=== PATIENT | female | born 1985 | race Caucasian/White ===

== ENCOUNTER 2022-02-09 12:21 | Emergency (ER) | payer OTHER, SELFPAY ==
[2022-02-09 12:29] VITALS: BP 106/56; PULSE 67; RESP 20; TEMP 37.1; O2SAT 100
--- NOTE | 2022-02-09 13:00 | ED.SKABFB ---
HPI - Skin/Abscess/Foreign Bdy General Chief complaint: Skin/Abscess/Foreign Body Stated complaint: Rash Time Seen by Provider: 02/09/22 12:35 Source: patient, RN notes reviewed and old records reviewed Mode of arrival: ambulatory Limitations: no limitations History of Present Illness HPI narrative: 37 year old female who presents to [facility] with complaints of 2 week duration of rash on her left eyebrow and on her nasal area. Patient states 3-year-old child was diagnosed recently impetigo and had to have oral antibiotic to get it to clear up. Patient has some crusty drainage noted to rash on eyebrow and she states that area is itchy., She has been using Mupirocin ointment to area without improvement. MD complaint: rash Onset (ago): week(s) (2) Treatments prior to arrival: other (Mupirocin) Related Data Home Medications Medication Instructions Recorded Confirmed estradiol-norethindrone acet 0.5 1 tablet PO DAILY 02/09/22 02/09/22 mg-0.1 mg tablet Allergies Allergy/AdvReac Type Severity Reaction Status Date / Time No Known Allergies Allergy Verified 02/09/22 12:59 Review of Systems Review of Systems: CONSTITUTIONAL: Denies fever, chills, or sweats. CARDIOVASCULAR: Denies chest pain, palpitations, or edema. RESPIRATORY: Denies cough or dyspnea. SKIN: Reports crusty rash to her left eye brow and also to her nasal area MUSCULOSKELETAL: Denies joint pain or myalgia. NEUROLOGIC: Denies headache, numbness, or weakness. All systems reviewed & are unremarkable except as noted in HPI and below PMFSH Social History Social History (Updated 02/09/22 @ 13:16 by Precious Higginbotham NP) Living arrangements: with family Gender identity (if verbalized by the patient): Female Comments At time of signature, agree with nursing past medical, surgical, social and family history. There is no relevant family history pertinent to the presenting complaint Exam Narrative: GENERAL: Well-appearing, well-nourished, and in no acute distress. HEAD: Normocephalic, atraumatic. EYES: PERRLA, conjunctivae clear, and EOMI. ENT: Mucous membranes moist. Oropharynx without edema, erythema or lesions. NECK: Supple. No lymphadenopathy CHEST: Clear to auscultation. No respiratory distress.SAO2 100% on room air HEART: Regular rate and rhythm. SKIN: Warm, dry.? Patches of red crusty lesions to nasal area and to left eyebrow with yellowish drainage, is itchy NEURO:? Alert and oriented x3. PSYCH: Normal mood and affect Course Course Emergency Course: Patient is aware of diagnosis, understands and agrees to treatment plan.? Anticipatory guidance given.? Patient agrees to follow-up as directed and is aware of reasons to seek care at the emergency department. Portions of this record may have been created with voice recognition software Level of Care: Express Care Visit Vital Signs Vital signs: Vital Signs Temperature 37.1 C 02/09/22 12:29 Pulse Rate 67 02/09/22 12:29 Respiratory Rate 20 02/09/22 12:29 Blood Pressure 106/56 L 02/09/22 12:29 Pulse Oximetry 100 02/09/22 12:29 Oxygen Delivery Room Air 02/09/22 12:29 Temperature 37.1 C 02/09/22 12:29 Pulse Rate 67 02/09/22 12:29 Respiratory Rate 20 02/09/22 12:29 Blood Pressure 106/56 L 02/09/22 12:29 Pulse Oximetry 100 02/09/22 12:29 Oxygen Delivery Room Air 02/09/22 12:29 Reviewed MDM - Skin/Abscess/Foreign Bdy MDM Narrative Medical decision making narrative: Does not appear at this time to be erythema multiforme, bullous, SJS, TEN; no evidence at this time to suggest RMSF, endocarditis or Lyme disease; patient looks well, nontoxic and is tolerating oral intake; no neurologic signs or symptoms; no headache, photophobia or neck pain; afebrile; appropriate for initial outpatient treatment; discussed the importance of follow-up, patient agrees; question, viral exanthema, contact dermatitis, allergic dermatitis, eczema, urticaria,
== END 2022-02-09 13:20 | disposition home or self-care (01) ==
PROVIDERS: Emergency Provider Registered Nurse; PCP Family Medicine
DX: L01.00 Impetigo, unspecified (principal)
CPT/HCPCS: 99213; G0463

== ENCOUNTER 2022-03-03 19:28 | Emergency (ER) | payer OTHER, SELFPAY ==
[2022-03-03 19:50] VITALS: BP 100/55; PULSE 76; RESP 16; TEMP 36.8; O2SAT 100
--- NOTE | 2022-03-03 20:29 | ED.SKABFB ---
HPI - Skin/Abscess/Foreign Bdy General Chief complaint: Skin/Abscess/Foreign Body Stated complaint: Rash on nose /eyebrow Time Seen by Provider: 03/03/22 20:30 Source: patient and RN notes reviewed Mode of arrival: ambulatory Limitations: no limitations History of Present Illness HPI narrative: 37-year-old female presents concern for impetigo on her nose. Reports she was treated with Keflex on February 09, the rash went away, however about a week ago started coming back. She reports in a slightly different spot this time. She reports the infection is in the left [place] and starting to appear on her forehead complaint: rash Related Data Home Medications Medication Instructions Recorded Confirmed estradiol-norethindrone acet 0.5 1 tablet PO DAILY 02/09/22 02/09/22 mg-0.1 mg tablet Allergies Allergy/AdvReac Type Severity Reaction Status Date / Time No Known Allergies Allergy Verified 02/09/22 12:59 Review of Systems Review of Systems: CONSTITUTIONAL: Denies malaise, chills, sweats, or fever. EYES: Denies redness, or discharge. ENT: Denies rhinorrhea, congestion, swollen lips, swollen tongue CARDIOVASCULAR: Denies chest pain, palpitations, or edema. RESPIRATORY: Denies cough or dyspnea. GASTROINTESTINAL: Denies abdominal pain, nausea, vomiting SKIN: Reports rash on the left nare MUSCULOSKELETAL: Denies joint pain or myalgia. NEUROLOGIC: Denies headache. All systems reviewed & are unremarkable except as noted in HPI and below PMFSH Social History Social History (Updated 02/09/22 @ 13:16 by Precious Higginbotham NP) Gender identity (if verbalized by the patient): Female Comments At time of signature, agree with nursing past medical, surgical, social and family history. There is no relevant family history pertinent to the presenting complaint Exam Narrative: GENERAL: Well-appearing, well-nourished, and in no acute distress. HEAD: Normocephalic, atraumatic. EYES: PERRLA, conjunctivae clear, and EOMI. ENT: Mucous membranes moist. Oropharynx without edema, erythema or lesions. NECK: Supple. No lymphadenopathy CHEST: Clear to auscultation. No respiratory distress. HEART: Regular rate and rhythm. SKIN: Warm, dry. Left nares is erythematous, slightly edematous with a honey-colored crusted rash, no surrounding erythema, edema, tenderness to the nose or mouth area. A pinpoint Honey-colored crusted area noted to the forehead. NEURO: Alert and oriented x3. PSYCH: Normal mood and affect Course Course Emergency Course: Patient is aware of diagnosis, understands and agrees to treatment plan. Anticipatory guidance given. Patient agrees to follow-up as directed and is aware of reasons to seek care at the emergency department. Portions of this record may have been created with voice recognition software Level of Care: Express Care Visit Vital Signs Vital signs: Vital Signs Temperature 98.2 F 03/03/22 19:50 Pulse Rate 76 03/03/22 19:50 Respiratory Rate 16 03/03/22 19:50 Blood Pressure 100/55 L 03/03/22 19:50 Pulse Oximetry 100 03/03/22 19:50 Oxygen Delivery Room Air 03/03/22 19:50 Temperature 98.2 F 03/03/22 19:50 Pulse Rate 76 03/03/22 19:50 Respiratory Rate 16 03/03/22 19:50 Blood Pressure 100/55 L 03/03/22 19:50 Pulse Oximetry 100 03/03/22 19:50 Oxygen Delivery Room Air 03/03/22 19:50 Reviewed. MDM - Skin/Abscess/Foreign Bdy MDM Narrative Medical decision making narrative: Does not appear at this time to be erythema multiforme, bullous, SJS, TEN; no evidence at this time to suggest RMSF, endocarditis or Lyme disease; patient looks well, nontoxic and is tolerating oral intake; no neurologic signs or symptoms; no headache, photophobia or neck pain; afebrile; appropriate for initial outpatient treatment; discussed the importance of follow-up, patient agrees; question, viral exanthema, contact dermatitis, allergic dermatitis, eczema, urticaria, impetigo, cellulitis
== END 2022-03-03 20:46 | disposition home or self-care (01) ==
PROVIDERS: Emergency Provider Nurse Practitioner
DX: L08.9 Local infection of the skin and subcutaneous tissue, unspecified (principal); B96.89 Other specified bacterial agents as the cause of diseases classified elsewhere
CPT/HCPCS: 87070; 87075; 87147; 87181; 87186; 87205; 99213; G0463

== ENCOUNTER 2022-03-19 17:01 | Emergency (ER) | payer OTHER, SELFPAY ==
--- NOTE | ~2022-03-19 | XR_ITS ---
EXAM: XR elbow LT min 3V DATE: 03/19/2022 19:25 HISTORY: FALL FORWARDS ON TO ALL FOURS, POSTERIOR PAIN . COMPARISON: None available. FINDINGS: Normal mineralization. Visualization of the posterior fat pad. Anterior displacement of th e anterior fat pad. No dislocation. No definite fracture visualized. No lytic or blastic lesion. Join t spaces are maintained. No erosion or periosteal change. Soft tissues within normal limits. IMPRESSION: Left elbow joint effusion which may indicate the presence of an occult radial head fractu re. Reviewed, dictated and finalized at location K. OR [facility] IMPRESSION: Left elbow joint effusion which may indicate the presence of an occ ult radial head fracture.
[2022-03-19 17:08] VITALS: BP 108/61; PULSE 93; RESP 16; TEMP 37.2; O2SAT 100
--- NOTE | 2022-03-19 19:34 | ED.UPPEXIN ---
HPI - Extremity Injury (Upper) General Chief Complaint: Extremity Injury, Upper Stated Complaint: left elbow/hand injury Time Seen by Provider: 03/19/22 19:34 Source: patient, RN notes reviewed and old records reviewed Mode of arrival: ambulatory Limitations: no limitations History of Present Illness HPI narrative: 37 year old female who resents to express care with complaints of dropping her child off this morning and walking in grass to he car ans slipped falling face first landed on knees and hands. Patient has noted swelling to her left elbow and it hurts to keiko her left elbow and also is unable to straighten it out without pain, patient has worked all day after her fall and she has taken Ibuprofen for her discomfort. MD complaint: injury to: left and elbow Treatments prior to arrival: NSAIDS Related Data Home Medications Medication Instructions Recorded Confirmed estradiol-norethindrone acet 0.5 1 tablet PO DAILY 02/09/22 03/19/22 mg-0.1 mg tablet Allergies Allergy/AdvReac Type Severity Reaction Status Date / Time No Known Allergies Allergy Verified 02/09/22 12:59 Review of Systems Review of Systems: CONSTITUTIONAL: Denies fever, chills, or sweats. CARDIOVASCULAR: Denies chest pain, palpitations, or edema. RESPIRATORY: Denies cough or dyspnea. SKIN: Denies rash or itching. Denies lacerations or abrasions MUSCULOSKELETAL: Reports injury to her left elbow with swelling and pain from fall this morning, NEUROLOGIC: Denies numbness, or weakness. All systems reviewed & are unremarkable except as noted in HPI and below PMFSH Surgical History Surgical History (Updated 03/25/22 @ 21:09 by Precious Higginbotham NP) History of repair of anterior cruciate ligament of right knee [place] teeth extracted Social History Social History (Updated 02/09/22 @ 13:16 by Precious Higginbotham NP) Gender identity (if verbalized by the patient): Female Comments At time of signature, agree with nursing past medical, surgical, social and family history. There is no relevant family history pertinent to the presenting complaint Exam Narrative: GENERAL: Well-appearing, well-nourished, and in no acute distress. HEAD: Normocephalic, atraumatic. EYES: PERRLA and EOMI. ENT: Nares clear, no rhinorrhea or epistaxis. Mucous membranes moist. NECK: Supple. no lymphadenopathy CHEST: Clear to auscultation. No respiratory distress.SAO2 100% on room air HEART: Regular rate and rhythm. No murmur heard. Normal peripheral pulses. ABDOMEN: Soft, nontender, nondistended, normal active bowel sounds. EXTREMITIES: Normal range of motion. edema to left elbow region with patient reporting difficulty bending and straightening her elbow without pain, patient has good pulses to her lleft arm with no tingling or numbness noted, Patient has obvious swelling to the left elbow. with ecchymosis. SKIN: Warm, dry, no rash. NEURO: No focal deficits. Alert and oriented x3. Course Course Level of Care: Express Care Visit Vital Signs Vital signs: Vital Signs Temperature 37.2 C 03/19/22 17:08 Pulse Rate 93 03/19/22 17:08 Respiratory Rate 16 03/19/22 17:08 Blood Pressure 108/61 03/19/22 17:08 Pulse Oximetry 100 03/19/22 17:08 Oxygen Delivery Room Air 03/19/22 17:08 Temperature 37.2 C 03/19/22 17:08 Pulse Rate 93 03/19/22 17:08 Respiratory Rate 16 03/19/22 17:08 Blood Pressure 108/61 03/19/22 17:08 Pulse Oximetry 100 03/19/22 17:08 Oxygen Delivery Room Air 03/19/22 17:08 MDM - Extremity Injury (Upper) MDM Narrative Medical decision making narrative: Patient's injury and or pain is consistent with musculoskeletal etiology. No signs of neurological or vascular compromise on exam. Compartments and tissues are soft without signs of compartment syndrome. Pain is felt appropriate for evaluation on outpatient basis. Differential Diagnosis Differential diagnosis: Likely other (elbow contusion, elbow effusion, pain in
== END 2022-03-19 20:18 | disposition home or self-care (01) ==
PROVIDERS: Emergency Provider Registered Nurse; PCP Family Medicine
DX: M25.422 Effusion, left elbow (principal); S50.02XA Contusion of left elbow, initial encounter; X58.XXXA Exposure to other specified factors, initial encounter
CPT/HCPCS: 73080; 99213; A4565; G0463

== ENCOUNTER 2024-10-09 19:59 | Emergency (ER) | payer BC, SELFPAY ==
[2024-10-09 20:08] VITALS: BP 125/68; PULSE 83; RESP 20; TEMP 36.7; O2SAT 95
--- NOTE | 2024-10-09 20:21 | ED_ITS ---
HPI - General Adult General Chief complaint: Upper Respiratory Infection Stated complaint: strep Source: patient Mode of arrival: ambulatory Limitations: no limitations History of Present Illness HPI narrative: Patient presents for evaluation of sick symptoms for last 5 days. Her initial symptom was fever. The following [facility]. She was told her symptoms were viral in nature. She has since developed a thick mucopurulent discharge from the nares, sore throat, productive cough of green sputum. No nausea, vomiting, diarrhea. On of her family members was recently sick. She does not smoke. She tried taking DayQuil. She is currently . Related Data Home Medications ?Medication ?Instructions ?Recorded ?Confirmed ?Last Taken ?Type cholecalciferol (vitamin D3) .ROUTE 10/09/24 Unknown History vit no.[id number] .ROUTE 10/09/24 Unknown History Allergies Allergy/AdvReac Type Severity Reaction Status Date / Time No Known Allergies Allergy Verified 10/09/24 20:12 Review of Systems Review of Systems: CONSTITUTIONAL: Denies fever, chills, or sweats. EYES: Denies visual changes, redness, or discharge. ENT: Reports sore throat, sinus congestion and mucopurulent discharge from the nares. CARDIOVASCULAR: Denies chest pain, palpitations, or edema. RESPIRATORY: reports productive cough of green sputum. Denies shortness of breath. GASTROINTESTINAL: Denies abdominal pain, nausea, vomiting, or diarrhea. GENITOURINARY: Denies dysuria or hematuria. SKIN: Denies rash or itching. MUSCULOSKELETAL: Denies back pain, joint pain, or myalgia. NEUROLOGIC: Denies headache, numbness, dizziness, or weakness. PSYCHIATRIC: Denies anxiety or depression. [facility] Past Medical History Medical History No pertinent past medical history Surgical History Surgical History [place] teeth extracted History of repair of anterior cruciate ligament of right knee Family History Family History Mother Family history non-contributory Social History Social History Smoking status: Never smoker Living arrangements: with family Gender identity (if verbalized by the patient): Female Sexual Orientation (if Verbalized by the Patient): Straight or Heterosexual Spiritual care concerns: No Exam Narrative: GENERAL: Well-appearing, well-nourished, and in no acute distress. HEAD: Normocephalic, atraumatic. EYES: PERRLA and EOMI. ENT: Nares clear, no rhinorrhea or epistaxis. Mucous membranes moist. Oropharynx without tonsillar hypertrophy exudate or other lesions. There is posterior pharyngeal erythema. Bilateral TMs pearly oswald nonbulging NECK: Supple. No adenopathy or masses. No carotid bruits or JVD CHEST: Clear to auscultation. No respiratory distress. No wheezes rales or rhonchi HEART: Regular rate and rhythm. No murmur heard. Normal peripheral pulses. ABDOMEN: Soft, nontender, nondistended, normal active bowel sounds. EXTREMITIES: Normal range of motion. No edema. SKIN: Warm, dry, no rash. NEURO: No focal deficits. Alert and oriented x3. PSYCH: Normal mood and affect. Course Course Emergency Course: This is a 39-year-old female who presented for evaluation of sick symptoms. Rapid strep negative. Will send throat culture. She meets criteria for bacterial sinusitis based upon presence of fever and mucopurulent nature for discharge. Will discharge with Augmentin. Advise she monitor her closely while . She should discontinue breast-feeding if the infant developed any adverse response. Follow-up with primary provider. Go to the ER for worsening symptoms. Patient in agreement with plan of care. Level of Care: Express Care Visit Vital Signs Vital signs: Vital Signs Temperature 36.7 C 10/09/24 20:08 Pulse Rate 83 10/09/24 20:08 Respiratory Rate 20 10/09/24 20:08 Blood Pressure 125/68 10/09/24 20:08 Pulse Oximetry 95 10/09/24 20:08 Oxygen Delivery Room Air 10/09/24 20:08 Temperature 36.7 C 10/09/24 20:08 Pulse Rate 83 10/09/24 20:08 Respiratory Rate 20 10/09/24 20:08 Blood Pressure 125/68 10/09/24 20:08 Pulse Oximetry 95 10/09/24 20:08 Oxygen Delivery Room Air 10/09/24 20:08 Medical Decision Making Vital Signs Vital Signs: Vital Signs Temperature 36.7 C 10/09/24 20:08 Pulse Rate 83 10/09/24 20:08 Respiratory Rate 20 10/09/24 20:08 Blood Pressure 125/68 10/09/24 20:08 Pulse Oximetry 95 10/09/24 20:08 Oxygen Delivery Room Air 10/09/24 20:08 Temperature 36.7 C 10/09/24 20:08 Pulse Rate 83 10/09/24 20:08 Respiratory Rate 20 10/09/24 20:08 Blood Pressure 125/68 10/09/24 20:08 Pulse Oximetry 95 10/09/24 20:08 Oxygen Delivery Room Air 10/09/24 20:08 Discharge Plan Discharge Clinical Impression: Sinusitis Patient Disposition: Home Condition: Stable Instructions: Antibiotic Form, Sinusitis (ED) Additional Instructions: PLEASE MONITOR YOUR CHILD FOR AND ADVERSE SYMPTOMS INCLUDING DIARRHEA AND VOMITING WHILE WITH ANTIBIOTICS AND STOP IF THAT OCCURS Patient Language: Green[place]ic Prescriptions: New amoxicillin-pot clavulanate 875-125 mg tablet 1 tablet PO Q12H Qty: 20 0RF No Action vit no.[id number] [Classic ] .ROUTE cholecalciferol (vitamin D3) .ROUTE Follow-up/Referrals: Cheryl,Jessica Felder DO [Primary Care Provider] - Stand Alone Forms: Work/School Release IP Time of Disposition: 20:20
[2024-10-09 20:22] LABS: EDSTREPNEGPOS1 Negative (Negative)
== END 2024-10-09 20:25 | disposition home or self-care (01) ==
PROVIDERS: Emergency Provider Nurse Practitioner; PCP Student in an Organized Health Care Education/Training Program
DX: J32.9 Chronic sinusitis, unspecified (principal)
CPT/HCPCS: 87081; 87880; 99213; G0463